=== PATIENT | female | born 1985 | race Hispanic/Latino ===

== ENCOUNTER → 2024-02-15 | Outpatient (REF) | payer BC ==
[~2024-02-15] MED LIST: BENLYSTA400 MG; CYCLOBENZAPRINE10 MG PO; HYDROXYCHLOROQ200 MG PO; KLOR-CON 1010 MEQ; LASIX40 MG PO; LOSARTAN POTASS25 MG PO; NURTEC ODT75 MG; QULIPTA10 MG; TOPIRAMATE100 MG PO; VITAMIN D250 MCG
== END ==
LOC: CT 11:51
PROVIDERS: ATTEND Internal Medicine
DX: G44.329 Chronic post-traumatic headache, not intractable (principal); M47.27 Other spondylosis with radiculopathy, lumbosacral region
CPT/HCPCS: 70450; 72110

== ENCOUNTER → 2024-03-16 | Outpatient (REF) | payer BC | LOC: MRI 13:43 | PROVIDERS: ATTEND Internal Medicine | DX: M47.27 Other spondylosis with radiculopathy, lumbosacral region (principal); M16.11 Unilateral primary osteoarthritis, right hip | CPT/HCPCS: 72148 ==

== ENCOUNTER 2024-09-04 15:35 | Emergency (ER) | payer BC, OTHER ==
[~2024-09-04] VITALS: Ht 162.6 cm; Wt 122.5 kg
[2024-09-04 16:11] VITALS: PULSE 98; RESP 16; TEMP 98.1; O2SAT 100
[2024-09-04] MEDS ORDERED: KETOROLAC TROMETHAMINE 30 MG/ML VIAL IV STA (16:24)
[2024-09-04] MEDS ORDERED: KETOROLAC TROMETHAMINE 60 MG/2 ML VIAL IM ONE (16:45)
== END 2024-09-04 17:11 | disposition left against medical advice (07) ==
LOC: ER 16:15
DX: M54.9 Dorsalgia, unspecified (principal); W18.2XXA Fall in (into) shower or empty bathtub, initial encounter; Y93.E1 Activity, personal bathing and showering; Y92.89 Other specified places as the place of occurrence of the external cause; Z76.5 Malingerer [conscious simulation]; I10 Essential (primary) hypertension; M32.9 Systemic lupus erythematosus, unspecified; F32.A Depression, unspecified; Z96.643 Presence of artificial hip joint, bilateral
CPT/HCPCS: 99283